=== PATIENT | female | born 1955 | race Caucasian/White ===

== ENCOUNTER 2016-11-05 14:37 | Inpatient (IN) | payer OTHER ==
--- NOTE | ~2016-11-05 | DS ---
Discharge Summary [address] [place]. [address] NAME: YANCI CHAVEZ : 53 STATUS : DIS IN PAT#: [id number] AGE: 61 ADM/REG DATE : 11/05/16 MR#: [id number] REPORT SERV DATE: 11/11/16 DICTATED BY: DATE: REPORT STATUS : Draft TRANSCRIBED BY: MODL DATE: 11/10/16 ADMISSION DATE: 11/05/2016 DISCHARGE DATE: 11/10/2016 DISCHARGE DIAGNOSES: 1. Acute on chronic obstructive pulmonary disease. 2. Acute hypoxic respiratory failure. 3. Diabetes mellitus type 2 with A1c 8.6. 4. Hyperglycemia secondary to steroids. 5. Hypoventilation syndrome versus obstructive sleep apnea. 6. Morbid obesity. 7. Peripheral artery disease. 8. Tobacco abuse. 9. Hypertension. 10.Volume overload with ejection fraction of 55%. PROCEDURES AND IMAGIN. On 11/05/2016, portable chest x-ray showed venous congestion with interstitial prominence in the lungs most compatible with edema as well as bibasilar atelectasis and possible small bilateral pleural fluid. 2. On 11/06/2016, venous Doppler of bilateral lower extremities showed no evidence of deep vein thrombosis in the left or right lower extremity. 3. On 11/05/2016, CT of the abdomen and pelvis without contrast showed no acute abnormality of the abdomen or pelvis. Cardiomegaly. Bilateral airspace disease, atelectasis versus pneumonia. Status post appendectomy, hysterectomy, and cholecystectomy. HOSPITAL COURSE: This is a very pleasant, 61-year-old, female with past medical history of progressive swelling, COPD, smoker of 1 to 1-1/2 packs of cigarettes a day, who presented with shortness of breath and progressive edema. Please see H and P dictated by Dr. Kayode Silva on 11/05/2016. The patient has a history of chronic leg pain with multiple stent placements by [facility], and is followed by Lynda Calloway NP. We have been unable to get the echocardiogram results that were ordered at [facility]. The patient states her shortness of breath is worse with lying down and exertion. During the patient's stay, she had been placed on steroids which have escalated her blood sugar and we have attempted to optimize her insulin regimen. Her current A1c is 8.6. The patient has been experiencing hyperglycemia secondary to her steroids and has required 47 units of NovoLog in the last 24 hours as well as her Levemir 30 units b.i.d. The patient is used to using 23 units at bedtime at home as well as a sliding scale. Pulmonary function test was done with FEV1 at 1.05 and FEV1/FVC is 81%. We have ordered a home O2 eval, it is determined that some of her problems are due to extrinsic factors, her weight as well as her tobacco abuse, and her tobacco abuse has been discussed extensively. The patient states she is ready to quit and requests Habitrol patches, and the patient will be followed up by her primary care provider to assist with this. It is also requested the patient followup with outpatient sleep study due to the patient's increased need of oxygen at night and the patient is willing to discuss this with PCP. The patient has been Discharge Summary [address] [place]. [address] NAME: YANCI CHAVEZ : 53 STATUS : DIS IN PAT#: [id number] AGE: 61 ADM/REG DATE : 11/05/16 MR#: [id number] REPORT SERV DATE: 11/11/16 DICTATED BY: DATE: REPORT STATUS : Draft TRANSCRIBED BY: MODL DATE: 11/10/16 currently diuresed and has had extreme improvement in her COPD. The patient continues to require O2 with activity around the room. PHYSICAL EXAMINATION: VITAL SIGNS: Blood pressure 134/65, O2 saturation 91% on 2 L nasal cannula, heart rate is 71, respirations 22, and temp is 97.3. HEENT: Head is atraumatic and normocephalic. Pupils are equal, round, reactive to light. Sclerae are nonicteric. Good dentition. NECK: Supple with no obvious thyromegaly or lymphadenopathy. Neck veins are flat. CHEST: No tenderness to palpation. LUNGS: Clear to auscultation with right upper lobe inspiratory wheeze. GI: Abdomen is soft, and nontender with active bowel sounds in all four quadrants. Normal bowel habitus. No palpable organomegaly. EXTREMITIES: The patient has coke bottle discoloration bilateral lower extremities to knees without oozing. Has 2+ edema in her feet, 1+ in her hands that is nonpitting. Distal pulses are 1 and 1. MUSCULOSKELETAL: Moves all extremities x4. She is ambulatory without assistance. SKIN: Skin is warm and dry with normal color and turgor. NEURO/PSYCH: The patient is alert and oriented x3, pleasant, cooperative. Cranial nerves 2 through 12 are grossly intact. LABORATORY DATA: BNP was 68.7. DISCHARGE MEDICATIONS: 1. Lipitor 40 mg at bedtime. 2. Azithromycin 500 mg daily x2 days. 3. Lasix 20 mg daily. 4. Neurontin 300 mg four times a day. 5. NovoLog and insulin per sliding scale with meals. 6. Avalide 150/12.5 mg one tablet daily. 7. Synthroid 150 mg daily. 8. Habitrol transdermal 21 mg daily. 9. Prednisone 40 mg twice daily x2 doses for 2 days. 10.Albuterol two puffs q.4 hours p.r.n. as needed for shortness of breath. 11.Levemir 20 units twice daily. 12.Ativan 0.5 mg three times a day p.r.n. for anxiety. 13.Amlodipine 5 mg p.o. daily. ALLERGIES: THE PATIENT IS ALLERGIC TO CODEINE, STATES IT GIVES HER GI UPSET. DISCHARGE INSTRUCTIONS: The patient is to follow up with Vascular Surgery on 11/17/2016, and follow up with her PCP in one week. The patient also will be scheduled by her primary care provider for an outpatient sleep study. The patient will be following 1800 calorie, 4 g sodium diet and will be followed by home health. Approximately 30 minutes have been spent coordinating discharge care of this patient as well as [id number] encounter and summarization of the discharge. Discharge Summary [address] [address] NAME: YANCI CHAVEZ : 53 STATUS : DIS IN PAT#: [id number] AGE: 61 ADM/REG DATE : 11/05/16 MR#: [id number] REPORT SERV DATE: 11/11/16 DICTATED BY: DATE: REPORT STATUS : Draft TRANSCRIBED BY: STACY DATE: 11/10/16 SITA/STACY Crystal Carmona NP / [id number] CC: MD Marsha Schulz M.D.
--- NOTE | ~2016-11-05 | PUL ---
[address] [place]. [address] NAME: YANCI CHAVEZ : 53 STATUS : DIS IN PAT#: [id number] AGE: 61 ADM/REG DATE : 11/05/16 MR#: [id number] REPORT SERV DATE: 11/10/16 DICTATED BY: WHIT PULLIAM DATE: 11/10/16 REPORT STATUS : Draft TRANSCRIBED BY: MODL DATE: 11/10/16 PULMONARY FUNCTION TEST RESULTS: 1. FEV1 of 1.05 liters (46% of predicted). 2. FVC 1.29 liters (43% of predicted). 3. FEV1/FVC ratio 81%. 4. TJX27-87% 1.14 liters/second (53% of predicted). IMPRESSION: The NUZ19-51% is reduced consistent with small airways obstruction. The forced vital capacity is reduced suggestive of restriction. Recommend full lung volumes to confirm restrictive ventilatory impairment if clinically indicated. PS/MODL Whit Pulliam M.D. / [id number] CC: MD Marsha Schulz M.D.
--- NOTE | ~2016-11-05 | HP ---
History And Physical [address] [place]. [address] NAME: YANCI CHAVEZ : 53 STATUS : ADM Luis Antonio PAT#: [id number] AGE: 61 ADM/REG DATE : 11/05/16 MR#: [id number] REPORT SERV DATE: 11/05/16 DICTATED BY: TAVON ESPINOSA DATE: 11/05/16 REPORT STATUS : Draft TRANSCRIBED BY: MODL DATE: 11/05/16 DATE OF ADMISSION: 11/05/2016 CHIEF COMPLAINT: Shortness of breath and progressive edema. HISTORY OF PRESENT ILLNESS: The patient is a 61-year-old female with past medical history of progressive swelling, COPD, continued one to one and a half pack per day smoking history, who presents after having progressive edema over the last month and shortness of breath. Today, she felt like she was can quite short of breath and was ordered better oxygenation. Was recommended to come to emergency room. Symptom has been intermittent, mild to moderate. Quality has been, no pain or radiating symptoms except for chronic leg pain. She has had history of stent placements, followed by Lynda Calloway with [facility]. Has had also incidentally a vessel on the right ankle that was previously bleeding a few days ago, but has since stopped. Has not been able to go back to [facility] to have this reevaluated. Did have echocardiogram performed at [facility], but does not know the results yet. There is no nausea, vomiting, fever, or diarrhea. Does have decreased exercise tolerance. Symptoms of shortness of breath are worsened with lying down and exertion, relieved by rest and sitting up. Does not use O2 at home. REVIEW OF SYSTEMS: For additional 10-point review of systems. GENERAL: No fevers or chills. EYES: No eye pain or visual changes. ENT: No sore throat or congestion. NEURO: No headache or confusion. SKIN: Did have venous stasis changes and bleeding vessel on right leg, which is currently healed. RESPIRATORY: Positive shortness of breath, dyspnea on exertion. CV: No chest pain. Does have bilateral edema. GI: No nausea, vomiting, diarrhea, or constipation. : No dysuria or hematuria. MUSCULOSKELETAL: No myalgias or arthralgias above baseline, but does have chronic leg cramping. ENDO: Increased fatigue, but no polyuria. HEME: No bruising. IMMUNOLOGIC: No rhinorrhea. PSYCH: No anxiety or confusion. PAST MEDICAL HISTORY: Noted for COPD, diabetes, asthma, panic attacks, hypertension, and hypothyroidism. SURGICAL HISTORY: , hysterectomy, cholecystectomy, hernia, appendectomy, cataracts. SOCIAL HISTORY: One pack per day to one and a half pack per day over the last 30 something years. Does drink wine frequently. 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 History And Physical [address] [address] NAME: YANCI CHAVEZ : 53 STATUS : ADM Luis Antonio PAT#: [id number] AGE: 61 ADM/REG DATE : 11/05/16 MR#: [id number] REPORT SERV DATE: 11/05/16 DICTATED BY: TAVON ESPINOSA DATE: 11/05/16 REPORT STATUS : Draft TRANSCRIBED BY: STACY DATE: 11/05/16 FAMILY HISTORY: Of breast cancer, kidney cancer, and SCRUB NURSE cancer. ALLERGIES: CODEINE. EKG: Normal sinus rhythm, rate of 74. QTc 424. HOME MEDICATIONS: Amlodipine, Lasix, Neurontin, insulin Lantus, Avalide, Synthroid, Ativan, and Zocor. PHYSICAL EXAMINATION: VITAL SIGNS: The patient's blood pressure 140/69, O2 at 85% on room air up to 90% on 3 L, respirations 22, pulse 70. GENERAL: Obese, elderly than stated age. EYES: No scleral icterus. EOMI. ENT: Nares patent. Moist mucous membranes. RESPIRATORY: Bilateral rales with end-expiratory wheeze diffusely. CHEST: Increased AP diameter. CV: Regular rate. No rubs. Bilateral edema. Chronic venous stasis changes in lower extremities. GI: Umbilical hernia, reducible. Bowel sounds positive. Nontender. No rebound. : Deferred. MUSCULOSKELETAL: Moves all extremities x4. Does have chronic venous stasis in lower extremities. Has had bleeding site on right vessel that it is currently healed. SKIN: Warm and dry. Chronic venous stasis changes. LYMPH: 3+ bilateral edema. HEME: No bruising. NEURO: Alert and oriented. Moves all extremities x4. No asterixis. Symmetrical smile. PSYCH: Appropriate mood and affect. LABORATORY DATA: ABG; pH 7.42, pCO2 of 59, PO2 of 54, bicarb 37.4, BNP 68.7. Chem profile, sodium 129, potassium 3.8, chloride 85, bicarb 35, BUN and creatinine 14 and 0.67, glucose 158, magnesium 1.7. Troponin negative. Calcium 9.5. CBC grossly within normal limits. INR 1.0. Chest, portable, venous congestion with interstitial prominence in the lungs most compatible with edema, bibasilar atelectasis, and possible small bilateral pleural effusion. ASSESSMENT: 1. Volume overload with pulmonary edema. 2. Acute hypoxic respiratory failure with hypercapnia. 3. Hypervolemic hyponatremia. 4. Hypertension. 5. Hypothyroidism. 6. Obesity. 7. Asthma history with chronic obstructive pulmonary disease. 8. Diabetes type 2, insulin dependent. 9. Peripheral arterial disease. 10.Tobacco use. History And Physical [address] [address] NAME: YANCI CHAVEZ : 53 STATUS : ADM Luis Antonio PAT#: [id number] AGE: 61 ADM/REG DATE : 11/05/16 MR#: [id number] REPORT SERV DATE: 11/05/16 DICTATED BY: TAVON ESPINOSA DATE: 11/05/16 REPORT STATUS : Draft TRANSCRIBED BY: MODSantana DATE: 11/05/16 11.Likely obstructive sleep apnea. PLAN: 1. For volume overload with pulmonary edema, diurese. We will do fluid restrictions. Echocardiogram was done at [facility]. Most recent echocardiogram in 2012 showed EF 55%. Anticipate a component of diastolic dysfunction. We will obtain these records from [facility], as these were only done just one week ago. We will additionally monitor albumin. The patient, per old records, had a question of adrenal disease. We will check a.m. cortisol. CT abdomen and pelvis without contrast. Component may also be secondary to venous insufficiency in the lower extremities. The patient has had multiple stents. We will additionally consult Dr. Maddox, as the patient has had peripheral arterial disease and recent bleeding ulcer from this area. 2. Acute hypoxic respiratory failure with hypercapnia. O2, mild COPD exacerbation also contributory with volume. Steroids, O2, and ICS. Continue supportive treatment. 3. Hypervolemic hyponatremia. Check fluid restriction. Differential includes cardiac, renal, and hepatic components. Echocardiogram still pending from outside facility. Renal function appears okay, but we will check urine lytes and check osm's, serum, and urine for further evaluation. CT abdomen to check for liver. 4. Hypertension. Discontinue amlodipine. Continue ARB and hydrochlorothiazide p.r.n. Amlodipine discontinued in the presence of edema. 5. Hypothyroidism. Check TSH and T4. On Synthroid. 6. Obesity. Positive 20 to 25 weight gain in six months. Evaluate for edema components. 7. Asthma history, COPD, steroids, O2, DuoNebs. 8. Diabetes type 2. Levemir sliding scale insulin. Check A1c. Diabetic education. 9. Peripheral arterial disease. Sees Lynda Calloway NP, for Dr. Maddox. The patient did have vessel bleed on right side, which is since okay at this time, but we will ultrasound, rule out DVTs. Has had right-sided stents. We will consult Dr. Maddox for additional evaluation with recent acute bleed and increased swelling in lower extremities. 10.Tobacco use. Nicotine patch. 11.Likely FELIX. Consider sleep study as an outpatient. Discussed with the patient. All questions answered with the patient and family. DDN/MODL Tavon Espinosa MD / [id number] CC: MD Marsha River M.D.
[2016-11-05 13:14] LABS: BASOPHILS 0.4 %; BASOPHILS ABSOLUTE 0.02 10/3/uL (0.0-0.16); EOSINOPHILS 1.2 %; EOSINOPHILS ABSOLUTE 0.06 10/3/uL (0.0-0.53); ER CBC TAT 0 Hrs 07 Mins; HEMATOCRIT 44.6 % (36.0-48.0); HEMOGLOBIN 14.8 g/dL (12.0-16.0); IMMATURE GRANULOCYTES 0.2 %; IMMATURE GRANULOCYTES ABSOLUTE 0.01 10/3/uL (0.0-0.11); LYMPHOCYTES 31.1 %; MANUAL DIFF NO %; MEAN CORPUS HGB CONC 33.2 g/dL (32.0-36.0); MEAN CORPUSCULAR HEMOGLOB 30.3 pg (26.0-34.0); MEAN CORPUSCULAR VOLUME 91.4 fL (80-100); MEAN PLATELET VOLUME 9.4 fL (9.2-13.0); MONOCYTES 7.4 %; MONOCYTES ABSOLUTE 0.38 10/3/uL (0.21-1.20); NEUTROPHILS 59.7 %; NEUTROPHILS ABSOLUTE 3.07 10/3/uL (2.02-8.40); PLATELET COUNT 194 10/3/uL (150-400); RBC DISTRIBUTION WIDTH 14.6 % (12.0-16.0); RED CELL COUNT 4.88 10/6/uL (4.0-5.6); WHITE BLOOD CELLS 5.1 10/3/uL (4.5-10.5)
[2016-11-05 13:29] LABS: BUN (BLOOD UREA NITROGEN) 14 MG/DL (6-23); CALCIUM, SERUM 9.5 MG/DL (8.5-10.4); CHEST PAIN PROFILE TAT 0 Hrs 22 Mins; CHLORIDE, SERUM 85 MMOL/L (96-112); CO2 (CARBON DIOXIDE) 35 MMOL/L (24-34); CREATININE 0.67 MG/DL (0.55-1.02); GFR AFRICAN AMERICAN 109 ML/MIN (>=60); GFR NON AFRICAN AMERICAN 94 ML/MIN (>=60); GLUCOSE, SERUM 158 MG/DL (60-99); POTASSIUM, SERUM 3.8 MMOL/L (3.5-5.3); TROPONIN I <0.02 NG/ML (<0.05)
[2016-11-05 13:30] LABS: SODIUM, SERUM 129 MMOL/L (135-148)
[2016-11-05 14:26] LABS: ALLENS TEST Pos; BE (BASE EXCESS) 10.2 MEQ/L (0 +/- 2.5); CARBOXYHEMOGLOBIN 6.5 % (0-3); HCO3 (ACTUAL BICARBONATE) 37.4 MEQ/L (23-27); HEMOBLOGIN CONTENT 15.9 G/DL (12-16); INSTRUMENT SERIAL # 35151; METHEMOGLOBIN 0.4 % (0-3); O2 CONTENT 18.2 VOL% (18-24); PCO2 (CO2 TENSION) 59 MMHG (35-45); PO2 (O2 TENSION) 54 MMHG (79-93); SAMPLE Arterial; pH 7.42 (7.37-7.43)
[~2016-11-05 14:37] MED LIST: ATV.5 PO; AVAP150 PO; LANTUS SC; SYN125 PO; ZOCOR10 PO
[2016-11-05] MEDS ORDERED: L20 PO (14:56)
[2016-11-05] MEDS ORDERED: SYN.15 PO (14:57)
[2016-11-05] MEDS ORDERED: LANTUS SC (14:57)
[2016-11-05] MEDS ORDERED: AVALIDE1 TAB PO (14:57)
[2016-11-05] MEDS ORDERED: ZOCOR10 PO (14:58)
[2016-11-05] MEDS ORDERED: ATV.5 PO (14:58)
[2016-11-05] MEDS ORDERED: NOVOLOG SC (14:58)
[2016-11-05] MEDS ORDERED: NEUR300 PO (14:59)
[2016-11-05] MEDS ORDERED: NORV5 PO (14:59)
[2016-11-05 17:40] LABS: BASOPHILS 0.4 %; BASOPHILS ABSOLUTE 0.03 10/3/uL (0.0-0.16); EOSINOPHILS 0.8 %; EOSINOPHILS ABSOLUTE 0.06 10/3/uL (0.0-0.53); HEMATOCRIT 44.5 % (36.0-48.0); HEMOGLOBIN 14.8 g/dL (12.0-16.0); IMMATURE GRANULOCYTES 0.1 %; IMMATURE GRANULOCYTES ABSOLUTE 0.01 10/3/uL (0.0-0.11); LYMPHOCYTES 23.2 %; LYMPHOCYTES ABSOLUTE 1.67 10/3/uL (0.67-4.30); MEAN CORPUS HGB CONC 33.3 g/dL (32.0-36.0); MEAN CORPUSCULAR HEMOGLOB 30.2 pg (26.0-34.0); MEAN CORPUSCULAR VOLUME 90.8 fL (80-100); MONOCYTES 6.7 %; MONOCYTES ABSOLUTE 0.48 10/3/uL (0.21-1.20); NEUTROPHILS 68.8 %; NEUTROPHILS ABSOLUTE 4.94 10/3/uL (2.02-8.40); PLATELET COUNT 169 10/3/uL (150-400); RBC DISTRIBUTION WIDTH 14.5 % (12.0-16.0); WHITE BLOOD CELLS 7.2 10/3/uL (4.5-10.5)
[2016-11-05 17:41] LABS: MANUAL DIFF NO %
[2016-11-05 18:15] LABS: A/G RATIO 0.9 (0.7-1.9); ALBUMIN 3.6 G/DL (3.5-5.0); ALKALINE PHOSPHATASE 108 U/L (45-117); BUN (BLOOD UREA NITROGEN) 14 MG/DL (6-23); CALCIUM, SERUM 9.7 MG/DL (8.5-10.4); CHLORIDE, SERUM 88 MMOL/L (96-112); CO2 (CARBON DIOXIDE) 36 MMOL/L (24-34); CREATININE 0.65 MG/DL (0.55-1.02); FREE T4 1.35 NG/DL (0.76-1.46); GFR AFRICAN AMERICAN 110 ML/MIN (>=60); GFR NON AFRICAN AMERICAN 95 ML/MIN (>=60); GLUCOSE, SERUM 132 MG/DL (60-99); PHOSPHORUS, SERUM 3.4 MG/DL (2.5-4.5); POTASSIUM, SERUM 3.6 MMOL/L (3.5-5.3); SGOT(AST) 12 U/L (5-40); SGPT(ALT) 19 U/L (5-65); SODIUM, SERUM 131 MMOL/L (135-148); TOTAL BILIRUBIN 0.8 MG/DL (0-1.2); TOTAL PROTEIN 7.6 G/DL (6.0-8.5); TROPONIN I <0.02 NG/ML (<0.05)
[2016-11-05 18:33] LABS: PROCALCITONIN <0.05 ng/mL (<0.5)
[2016-11-05 19:27] LABS: SODIUM, URINE 57 MEQ/L
[2016-11-05 19:30] LABS: OSMOLALITY, URINE 214 MOSM/KG (50-1200)
[2016-11-05 19:36] LABS: ASCORBIC ACID (UR NOT ORDER) NEG (NEG); BILIRUBIN, URINE NEGATIVE (NEG); KETONE, URINE NEGATIVE (NEG); LEUKOCYTE ESTERASE(NOT OR NEG (NEG); WBC (NOT ORDERED) (RFLEX) < 1 (0-5)
[2016-11-06 06:20] LABS: A/G RATIO 0.8 (0.7-1.9); ALBUMIN 3.4 G/DL (3.5-5.0); ALKALINE PHOSPHATASE 107 U/L (45-117); BUN (BLOOD UREA NITROGEN) 17 MG/DL (6-23); CALCIUM, SERUM 9.4 MG/DL (8.5-10.4); CHLORIDE, SERUM 86 MMOL/L (96-112); CO2 (CARBON DIOXIDE) 36 MMOL/L (24-34); CREATININE 0.77 MG/DL (0.55-1.02); GFR AFRICAN AMERICAN 96 ML/MIN (>=60); GFR NON AFRICAN AMERICAN 83 ML/MIN (>=60); GLOBULIN 4.1 G/DL (2.5-4.1); SGOT(AST) 12 U/L (5-40); SGPT(ALT) 21 U/L (5-65); SODIUM, SERUM 132 MMOL/L (135-148); TOTAL BILIRUBIN 0.9 MG/DL (0-1.2); TOTAL PROTEIN 7.5 G/DL (6.0-8.5)
[2016-11-06 06:21] LABS: GLUCOSE, SERUM 212 MG/DL (60-99)
[2016-11-07 05:00] LABS: BASOPHILS 0 %; EOSINOPHILS 0 %; HEMATOCRIT 43.5 % (36.0-48.0); HEMOGLOBIN 14.2 g/dL (12.0-16.0); IMMATURE GRANULOCYTES 0.2 %; IMMATURE GRANULOCYTES ABSOLUTE 0.02 10/3/uL (0.0-0.11); LYMPHOCYTES 7.8 %; LYMPHOCYTES ABSOLUTE 0.71 10/3/uL (0.67-4.30); MEAN CORPUS HGB CONC 32.6 g/dL (32.0-36.0); MEAN CORPUSCULAR HEMOGLOB 30.2 pg (26.0-34.0); MEAN CORPUSCULAR VOLUME 92.6 fL (80-100); MEAN PLATELET VOLUME 9.6 fL (9.2-13.0); MONOCYTES 3.6 %; MONOCYTES ABSOLUTE 0.33 10/3/uL (0.21-1.20); NEUTROPHILS 88.4 %; NEUTROPHILS ABSOLUTE 8.08 10/3/uL (2.02-8.40); PLATELET COUNT 204 10/3/uL (150-400); RBC DISTRIBUTION WIDTH 14.5 % (12.0-16.0); WHITE BLOOD CELLS 9.1 10/3/uL (4.5-10.5)
[2016-11-07 05:01] LABS: MANUAL DIFF NO %
[2016-11-07 05:19] LABS: A/G RATIO 0.8 (0.7-1.9); ALBUMIN 3.3 G/DL (3.5-5.0); CALCIUM, SERUM 9.3 MG/DL (8.5-10.4); CHLORIDE, SERUM 86 MMOL/L (96-112); CO2 (CARBON DIOXIDE) 38 MMOL/L (24-34); CREATININE 0.71 MG/DL (0.55-1.02); GFR AFRICAN AMERICAN 106 ML/MIN (>=60); GFR NON AFRICAN AMERICAN 91 ML/MIN (>=60); GLUCOSE, SERUM 240 MG/DL (60-99); POTASSIUM, SERUM 4.2 MMOL/L (3.5-5.3); SGPT(ALT) 19 U/L (5-65); SODIUM, SERUM 132 MMOL/L (135-148); TOTAL BILIRUBIN 0.8 MG/DL (0-1.2); TOTAL PROTEIN 7.3 G/DL (6.0-8.5)
[2016-11-07 05:20] LABS: BUN (BLOOD UREA NITROGEN) 27 MG/DL (6-23)
[2016-11-07 05:21] LABS: ALKALINE PHOSPHATASE 91 U/L (45-117); SGOT(AST) 16 U/L (5-40)
[2016-11-08 04:20] LABS: BASOPHILS 0 %; EOSINOPHILS 0 %; HEMOGLOBIN 15.3 g/dL (12.0-16.0); IMMATURE GRANULOCYTES 0.2 %; IMMATURE GRANULOCYTES ABSOLUTE 0.02 10/3/uL (0.0-0.11); LYMPHOCYTES 10.3 %; LYMPHOCYTES ABSOLUTE 0.95 10/3/uL (0.67-4.30); MEAN CORPUS HGB CONC 31.9 g/dL (32.0-36.0); MEAN CORPUSCULAR HEMOGLOB 30.2 pg (26.0-34.0); MEAN CORPUSCULAR VOLUME 94.7 fL (80-100); MEAN PLATELET VOLUME 9.9 fL (9.2-13.0); MONOCYTES 4.2 %; MONOCYTES ABSOLUTE 0.39 10/3/uL (0.21-1.20); NEUTROPHILS 85.3 %; PLATELET COUNT 212 10/3/uL (150-400); RBC DISTRIBUTION WIDTH 14.7 % (12.0-16.0); RED CELL COUNT 5.07 10/6/uL (4.0-5.6); WHITE BLOOD CELLS 9.3 10/3/uL (4.5-10.5)
[2016-11-08 04:21] LABS: MANUAL DIFF NO %
[2016-11-08 04:29] LABS: CALCIUM, SERUM 9.8 MG/DL (8.5-10.4); CHLORIDE, SERUM 88 MMOL/L (96-112); CO2 (CARBON DIOXIDE) 38 MMOL/L (24-34); CREATININE 0.87 MG/DL (0.55-1.02); GFR AFRICAN AMERICAN 83 ML/MIN (>=60); GFR NON AFRICAN AMERICAN 71 ML/MIN (>=60); GLUCOSE, SERUM 213 MG/DL (60-99); SODIUM, SERUM 133 MMOL/L (135-148)
[2016-11-08 04:39] LABS: POTASSIUM, SERUM 4.7 MMOL/L (3.5-5.3)
[2016-11-08 04:40] LABS: BUN (BLOOD UREA NITROGEN) 34 MG/DL (6-23)
[2016-11-09 06:33] LABS: BASOPHILS 0 %; EOSINOPHILS 0 %; HEMATOCRIT 46.6 % (36.0-48.0); HEMOGLOBIN 15.1 g/dL (12.0-16.0); IMMATURE GRANULOCYTES 0.3 %; IMMATURE GRANULOCYTES ABSOLUTE 0.02 10/3/uL (0.0-0.11); LYMPHOCYTES 15.6 %; LYMPHOCYTES ABSOLUTE 1.22 10/3/uL (0.67-4.30); MEAN CORPUS HGB CONC 32.4 g/dL (32.0-36.0); MEAN CORPUSCULAR HEMOGLOB 30.5 pg (26.0-34.0); MEAN CORPUSCULAR VOLUME 94.1 fL (80-100); MEAN PLATELET VOLUME 9.7 fL (9.2-13.0); MONOCYTES 6.8 %; MONOCYTES ABSOLUTE 0.53 10/3/uL (0.21-1.20); NEUTROPHILS 77.3 %; NEUTROPHILS ABSOLUTE 6.04 10/3/uL (2.02-8.40); PLATELET COUNT 208 10/3/uL (150-400); RBC DISTRIBUTION WIDTH 14.4 % (12.0-16.0); RED CELL COUNT 4.95 10/6/uL (4.0-5.6); WHITE BLOOD CELLS 7.8 10/3/uL (4.5-10.5)
[2016-11-09 06:34] LABS: MANUAL DIFF NO %
[2016-11-09 06:46] LABS: A/G RATIO 0.8 (0.7-1.9); ALBUMIN 3.3 G/DL (3.5-5.0); ALKALINE PHOSPHATASE 83 U/L (45-117); BUN (BLOOD UREA NITROGEN) 33 MG/DL (6-23); CALCIUM, SERUM 9.7 MG/DL (8.5-10.4); CHLORIDE, SERUM 92 MMOL/L (96-112); CO2 (CARBON DIOXIDE) 38 MMOL/L (24-34); CREATININE 0.73 MG/DL (0.55-1.02); GFR AFRICAN AMERICAN 102 ML/MIN (>=60); GFR NON AFRICAN AMERICAN 88 ML/MIN (>=60); GLOBULIN 3.9 G/DL (2.5-4.1); GLUCOSE, SERUM 173 MG/DL (60-99); POTASSIUM, SERUM 3.9 MMOL/L (3.5-5.3); SGOT(AST) 16 U/L (5-40); SGPT(ALT) 29 U/L (5-65); SODIUM, SERUM 136 MMOL/L (135-148); TOTAL BILIRUBIN 0.6 MG/DL (0-1.2); TOTAL PROTEIN 7.2 G/DL (6.0-8.5)
[2016-11-10 04:45] LABS: CALCIUM, SERUM 10.2 MG/DL (8.5-10.4); CHLORIDE, SERUM 90 MMOL/L (96-112); CO2 (CARBON DIOXIDE) 37 MMOL/L (24-34); GFR AFRICAN AMERICAN 92 ML/MIN (>=60); GFR NON AFRICAN AMERICAN 79 ML/MIN (>=60); GLUCOSE, SERUM 178 MG/DL (60-99); POTASSIUM, SERUM 4.1 MMOL/L (3.5-5.3); SODIUM, SERUM 133 MMOL/L (135-148)
[2016-11-10 04:51] LABS: BUN (BLOOD UREA NITROGEN) 37 MG/DL (6-23)
[2016-11-10] MEDS ORDERED: ZITHROMAX500 MG PO (17:24)
[2016-11-10] MEDS ORDERED: LIPITOR40 PO (17:24)
[2016-11-10] MEDS ORDERED: HABIT21 TOP (17:30)
[2016-11-10] MEDS ORDERED: P20 PO (17:31)
[2016-11-10] MEDS ORDERED: PROAIR HFA INH (17:32)
[2016-11-10] MEDS ORDERED: ASAB PO (17:32)
[2017-03-28] MEDS ORDERED: LANTUS SC ×2 (03:05→03:06)
[2017-03-28] MEDS ORDERED: HUMALOG SC ×2 (03:06→03:14)
[2017-04-01] MEDS ORDERED: PLAVIX PO (16:15)
[2017-04-01] MEDS ORDERED: IVVIBRA PO (16:15)
[2017-04-01] MEDS ORDERED: SPIRIVA INH ×2 (16:16→16:20)
[2017-04-01] MEDS ORDERED: NYSTATPOW (16:16)
[2017-04-01] MEDS ORDERED: LEVEMIR SC ×2 (16:23)
[2017-04-01] MEDS ORDERED: SILVADENE1 % (16:24)
[2017-04-01] MEDS ORDERED: LIPITOR80 MG PO (16:25)
[2017-04-01] MEDS ORDERED: SILVADENE1 % TOP (16:25)
[2017-04-01] MEDS ORDERED: INSNOVR SQ (16:28)
== END 2016-11-10 19:18 | disposition home health service (06) | DRG 291 ==
LOC: ER 14:37 → 7NO 14:57
PROVIDERS: Hospitalist; Internal Medicine; Nurse Practitioner Family; Student in an Organized Health Care Education/Training Program
DX: I11.0 Hypertensive heart disease with heart failure (principal); J96.01 Acute respiratory failure with hypoxia; J96.02 Acute respiratory failure with hypercapnia; I50.33 Acute on chronic diastolic (congestive) heart failure; E87.1 Hypo-osmolality and hyponatremia; Z68.41 Body mass index [BMI] 40.0-44.9, adult; J44.1 Chronic obstructive pulmonary disease with (acute) exacerbation; E03.9 Hypothyroidism, unspecified; J45.909 Unspecified asthma, uncomplicated; Z79.4 Long term (current) use of insulin; E66.01 Morbid (severe) obesity due to excess calories; E11.65 Type 2 diabetes mellitus with hyperglycemia; I73.9 Peripheral vascular disease, unspecified; R73.9 Hyperglycemia, unspecified; T38.0X5A Adverse effect of glucocorticoids and synthetic analogues, initial encounter; G47.33 Obstructive sleep apnea (adult) (pediatric); F17.210 Nicotine dependence, cigarettes, uncomplicated; Z88.5 Allergy status to narcotic agent; Z95.9 Presence of cardiac and vascular implant and graft, unspecified
CPT/HCPCS: 36600; 71010; 74176; 80048; 80053; 81001; 82150; 82533; 82805; 82962; 83036; 83605; 83690; 83735; 83880; 83935; 84100; 84145; 84300; 84439; 84443; 84484; 85025; 85610; 85730; 87205; 93005; 93970; 94010; 94640; 96374; 99285; A9270-GY; J0456; J2920; J2930